=== PATIENT | female | born 1955 | race Caucasian/White ===

== ENCOUNTER 2018-08-13 16:05 | Emergency (ER) | payer OTHER ==
[~2018-08-13] VITALS: Ht 160 cm; Wt 112.0 kg
[2018-08-13 16:14] VITALS: Ht 160 cm; Wt 112.0 kg
[2018-08-13 18:38] VITALS: BP 138/74
== END 2018-08-13 19:01 | disposition home or self-care (01) ==
LOC: ED 16:05
DX: J45.909 Unspecified asthma, uncomplicated (principal); M79.89 Other specified soft tissue disorders; I10 Essential (primary) hypertension; K21.9 Gastro-esophageal reflux disease without esophagitis; M79.7 Fibromyalgia; F41.9 Anxiety disorder, unspecified; M17.11 Unilateral primary osteoarthritis, right knee; Z85.3 Personal history of malignant neoplasm of breast; Z98.84 Bariatric surgery status; Z98.890 Other specified postprocedural states; Z88.0 Allergy status to penicillin; Z88.5 Allergy status to narcotic agent; Z88.8 Allergy status to other drugs, medicaments and biological substances
CPT/HCPCS: Q0092